=== PATIENT | male | born 1980 | race Caucasian/White ===

== ENCOUNTER 2018-04-06 14:05 | Emergency (ER) | payer OTHER ==
[2018-04-06 14:35] VITALS: BP 125/81
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
--- NOTE | 2018-04-06 15:27 | RAD ---
INDICATION: Chronic back pain COMPARISON: None TECHNIQUE: Routine PA, lateral, and oblique imaging was performed . FINDINGS: Bones: There are no acute bony findings. There are no significant osteoarthritic findings. Alignment: Normal Disc spaces: The disc spaces are well-maintained Soft tissues: There are no soft tissue abnormalities. IMPRESSION: NO SIGNIFICANT PLAIN RADIOGRAPHIC FINDINGS.
== END 2018-04-06 15:59 | disposition home or self-care (01) ==
LOC: UCCORT 14:05
DX: M54.5 Low back pain (principal); V89.0XXS Person injured in unspecified motor-vehicle accident, nontraffic, sequela; F17.210 Nicotine dependence, cigarettes, uncomplicated; Z88.5 Allergy status to narcotic agent
CPT/HCPCS: 72110; 99212; G0463